=== PATIENT | female | born 2000 | race Caucasian/White ===

== ENCOUNTER 2023-02-23 07:29 | Emergency (ER) | payer BC ==
[~2023-02-23] VITALS: Ht 170.2 cm; Wt 65.0 kg
[2023-02-23 07:37] VITALS: O2SAT 93
[2023-02-23] MEDS ORDERED: METHYLPREDNISOLONE SOD SUCC 125MG/2ML (ACT-O-VIAL) IV ONE (07:45)
[2023-02-23] MEDS ORDERED: FAMOTIDINE 20MG/2ML VIAL IV ONE (07:45)
[2023-02-23] MEDS ORDERED: DIPHENHYDRAMINE 50MG/ML VIAL IV ONE (07:45)
[2023-02-23] MEDS ORDERED: DIPH25CA83 PO (09:35)
[2023-02-23] MEDS ORDERED: EPIN0.3P3 IM (09:35)
[2023-02-23] MEDS ORDERED: P50 PO (09:35)
[2023-02-23 10:10] VITALS: BP 127/78; PULSE 82; RESP 20; TEMP 97.8
== END 2023-02-23 10:12 | disposition home or self-care (01) ==
LOC: ER 08:09
DX: T78.40XA Allergy, unspecified, initial encounter (principal); X58.XXXA Exposure to other specified factors, initial encounter
CPT/HCPCS: 96374; 96375; 99284; J1200; J3490; J2930; Z7610